=== PATIENT | female | born 1945 | race Caucasian/White ===

== ENCOUNTER 2018-06-03 12:43 | Emergency (ER) | payer MEDICARE, OTHER ==
[~2018-06-03] VITALS: Ht 154.9 cm; Wt 75.9 kg
[~2018-06-03 12:43] MED LIST: ACYCLOVIR 400400 MG PO; ADULT LOW DOSE81 MG PO; CIPROFLOXACIN500 M1 PO; CLARITIN10 MG; FLAGYL500 MG PO; FLEXERIL PO; NORCO 5-325 TA1 EACH PO
[2018-06-03 13:03] LABS: ABSOLUTE BASOPHILS 0.1 thou/uL (0.0-0.2); ABSOLUTE LYMPHOCYTES 1.5 thou/uL (0.8-5.3); ABSOLUTE MONOCYTES 0.6 thou/uL (0.0-1.2); ABSOLUTE NEUTROPHILS 5.7 thou/uL (1.6-8.1); BASOPHILS 0.9 %; EOSINOPHILS 0.6 %; HEMATOCRIT 40.9 % (37.0-47.0); HEMOGLOBIN 13.6 gm/dL (12.0-15.0); LYMPHOCYTES 18.9 %; MCH 30.9 pg (26.0-34.0); MCHC 33.4 g/dL (28.0-37.0); MCV 92.6 fL (80.0-100.0); MONOCYTES 7.4 %; MPV 8.4 fl. (7.2-11.1); NUCLEATED RBCS 0 /100WBC; PLATELET COUNT* 261 thou/uL (150-400); POLYS 72.2 %; RBC 4.42 mil/uL (4.20-5.00); RDW-CV 13.4 % (10.5-14.5); WBC 7.9 thou/uL (4.0-11.0)
[2018-06-03 13:10] LABS: ANION GAP 8 mmol/L (7-16); BUN 15 mg/dL (7-18); CALCIUM 8.6 mg/dL (8.5-10.1); CHLORIDE 103 mmol/L (98-107); CO2 28 mmol/L (21-32); CREATININE 0.7 mg/dL (0.6-1.3); GLUCOSE 97 mg/dL (70-99); SODIUM 139 mmol/L (136-145)
[2018-06-03 13:11] LABS: PROTIME 9.9 Seconds (9.20-11.50)
[2018-06-03 13:17] LABS: ALBUMIN 3.9 g/dL (3.4-5.0); ALKALINE PHOSPHATASE 124 U/L (46-116); SGOT 23 U/L (15-37); SGPT 25 U/L (30-65); TOTAL BILIRUBIN 0.5 mg/dL (<0.1-1.0); TOTAL PROTEIN 7.3 g/dL (6.4-8.2); TROPONIN-I LEVEL <0.06 ng/mL (<0.06)
[2018-06-03 14:04] VITALS: BP 174/90
--- NOTE | 2018-06-03 17:18 | EKG ---
[place] [address] ELECTROCARDIOGRAM REPORT Name: [facility]ATH MARSHALL [id number] Admission: 06/03/18 Attend Phys: Discharge: 06/03/18 Date of : 43 Report #: [id number] THIS REPORT FOR: //name// [facility] ED Test Date: 2018-06-03 Test Time: 13:05:49 Pat Name: HEATH MARSHALL Department: Room: Gender: F P 3 [employer] Technician: AARON : 1945 Requested By: Riley Hansen Order Number: [id number] MD: Brandon Marie Measurements Intervals [place] Rate: 72 P: -3 ND: 155 QRS: -52 QRSD: 145 T: -9 QT: 408 QTc: 447 Interpretive Statements Sinus rhythm RBBB and LAFB Left ventricular hypertrophy Compared to ECG 09/13/2010 14:14:52 Left anterior fascicular block now present Right bundle-branch block now present Left ventricular hypertrophy now present Atrial premature complex(es) no longer present Electronically Signed On 06-03-2018 17:18:38 CDT by Brandon Marie [email or web address] <ELECTRONICALLY SIGNED> By: Brandon Marie MD, [facility] 06/03/18 1718 1305 1305 Brandon Marie MD, [facility] /EPI
== END 2018-06-03 14:05 | disposition home or self-care (01) ==
LOC: M.ERS 12:43
PROVIDERS: Family Medicine
DX: R20.2 Paresthesia of skin (principal); M79.602 Pain in left arm; M19.90 Unspecified osteoarthritis, unspecified site; Z90.710 Acquired absence of both cervix and uterus; Z90.49 Acquired absence of other specified parts of digestive tract; Z96.651 Presence of right artificial knee joint; Z88.5 Allergy status to narcotic agent; Z88.6 Allergy status to analgesic agent; Z88.8 Allergy status to other drugs, medicaments and biological substances

== ENCOUNTER → 2018-09-12 | Outpatient (CLI) | payer MEDICARE, OTHER | LOC: M.RAD 09:22 | DX: Z12.31 Encounter for screening mammogram for malignant neoplasm of breast (principal) ==

== ENCOUNTER → 2019-05-11 | Outpatient (CLI) | payer MEDICARE, OTHER ==
--- NOTE | 2019-05-11 13:38 | 2DMMODE ---
[place] [address] 2 D/M-MODE ECHOCARDIOGRAM Name: HEATH MARSHALL Room: [facility].#: [id number] Admission: 05/11/19 Attend Phys: Coni Stark, Discharge: Date of : 43 Date of Service: 05/11/19 1338 Report #: [id number] THIS REPORT FOR: //name// APPROVED REPORT Study performed: 05/11/2019 10:11:33 EXAM: Comprehensive 2D, Doppler, and color-flow Echocardiogram/ Bubble Study Patient Location: Out-Patient BSA: 1.76 HR: 66 bpm BP: 134/80 mmHg Other Information Study Quality: Good Indications CVA/TIA Echo Enhancing Agent Indication: Rule out Shunt Agent(s) / Amount(s) Used: Agitated Saline 10 cc 2D Dimensions IVSd: 10.31 (7-11mm) LVOT Diam: 20.28 (18-24mm) LVDd: 39.93 mm PWd: 11.05 (7-11mm) Ascending Ao: 31.07 (22-36mm) LVDs: 26.75 (25-40mm) Aortic Root: 28.91 mm Volumes Left Atrial Volume (Systole) LA ESV Index: 19.50 mL/m2 Aortic Valve AoV Peak Gino.: 1.11 m/s AO Peak Gr.: 4.95 mmHg LVOT Max P.52 mmHg AO Mean Gr.: 2.89 mmHg LVOT Mean P.18 mmHg LVOT Max V: 0.79 m/s AO V2 VTI: 22.68 cm LVOT Mean V: 0.50 m/s NICOLA (VTI): 2.39 cm2 LVOT V1 VTI: 16.79 cm Mitral Valve E/A Ratio: 0.55 [place] [address] 2 D/M-MODE ECHOCARDIOGRAM Name: HEATH MARSHALL Room: [facility]#: [id number] Admission: 05/11/19 Attend Phys: Coni Stark, Discharge: Date of : 43 Date of Service: 05/11/19 1338 Report #: [id number] MV Decel. Time: 410.24 ms MV E Max Gino.: 0.39 m/s MV PHT: 118.97 ms MVA (PHT): 1.85 cm2 TDI E/Lateral E': 5.57 E/Medial E': 9.75 Medial E' Gino.: 0.04 m/s Lateral E' Gino.: 0.07 m/s Pulmonary Valve PV Peak Gino.: 0.90 m/s PV Peak Gr.: 3.27 mmHg Tricuspid Valve RAP Estimate: 5.00 mmHg TR Peak Gr.: 16.07 mmHg RVSP: 21.07 mmHg PA Pressure: 21.07 mmHg Left Ventricle The left ventricle is normal size. There is normal LV segmental wall motion. There is normal left ventricular wall thickness. Left ventricular systolic function is normal. The left ventricular ejection fraction is within the normal range. LVEF is 55-60%. Grade I - abnormal relaxation pattern. Right Ventricle The right ventricle is normal size. The right ventricular systolic function is normal. Atria The left atrium size is normal. Injection of bubbles documented no interatrial shunt. The right atrium size is normal. Aortic Valve The aortic valve is normal in structure. Trace aortic regurgitation. There is no aortic valvular stenosis. Mitral Valve The mitral valve is normal in structure. Mild mitral regurgitation. No evidence of mitral valve stenosis. Tricuspid Valve The tricuspid valve is normal in structure. Mild tricuspid regurgitation[place] [address] 2 D/M-MODE ECHOCARDIOGRAM Name: HEATH MARSHALL Room: [facility]#: [id number] Admission: 05/11/19 Attend Phys: Coni Stark, Discharge: Date of : 43 Date of Service: 05/11/19 1338 Report #: [id number] The pulmonary valve is normal in structure. There is no pulmonic valvular regurgitation. Great Vessels The aortic root is normal in size. IVC is normal in size and collapses >50% with inspiration. Pericardium There is no pericardial effusion. <Conclusion> LVEF is 55-60%. Mild mitral regurgitation. Injection of bubbles documented no interatrial shunt. <ELECTRONICALLY SIGNED> By: Brandon Marie MD, [facility] 05/11/19 1338 1338 1338 Brandon Marie MD, FACC /INF
== END ==
LOC: M.ULTRA 05-04 15:01
DX: I08.1 Rheumatic disorders of both mitral and tricuspid valves (principal); E04.1 Nontoxic single thyroid nodule

== ENCOUNTER → 2019-09-14 | Outpatient (CLI) | payer MEDICARE, OTHER | LOC: M.RAD 08:39 | DX: Z12.31 Encounter for screening mammogram for malignant neoplasm of breast (principal) ==

== ENCOUNTER → 2020-08-30 | Outpatient (CLI) | payer MEDICARE, OTHER | LOC: M.RAD 13:00 | PROVIDERS: ATTEND Family Medicine | DX: Z12.31 Encounter for screening mammogram for malignant neoplasm of breast (principal); N64.89 Other specified disorders of breast ==

== ENCOUNTER → 2021-09-04 | Outpatient (CLI) | payer MEDICARE, OTHER | LOC: M.RAD 08-30 09:00 | PROVIDERS: ATTEND Family Medicine | DX: Z12.31 Encounter for screening mammogram for malignant neoplasm of breast (principal) ==